=== PATIENT | male | born 1980 | race Caucasian/White ===

== ENCOUNTER 2016-09-15 09:47 | Emergency (ER) | payer OTHER ==
[2016-09-15 10:01] VITALS: BP 143/82; PULSE 61; RESP 14; TEMP 97.5; O2SAT 96
--- NOTE | 2016-09-15 10:05 | UCPHY ---
H & P Time Seen by Provider: 09/15/16 09:58 Patient Type: New HPI/ROS: HPI Left wrist and hand injury. 36-year-old male. Right-hand dominant. 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 He was playing softball last night. He fell on an outstretched left hand. He complains of isolated pain to the dorsal radial aspect of his mid hand as well as some pain to the ventral distal radial aspect of the left wrist. No other injury or complaint. ROS: Constitutional: No fever, no chills. No weakness. Musculoskeletal: No back pain. No neck pain. As above. No other extremity pain. Skin: No lacerations or abrasions. Neurological: No headache. No focal weakness or altered sensation. Past medical history: No significant past medical history. Social history: Nonsmoker. Here by himself. Physical Exam: General Appearance: Alert, no distress. This patient is responding to questions appropriately and in full sentences. This patient appears well- hydrated and well-nourished. Eyes: Pupils equal and round no pallor or injection. No lid edema, erythema or injection. Left hand and wrist exam: Significant for some tenderness on palpation and some faint ecchymosis with swelling over the mid dorsal metacarpals 2. And 3. He also has some mild pain on palpation without swelling or ecchymosis to the distal ventral radius. The left hand is neurovascularly intact. Extensor and flexor tendon function is intact in all digits. No lacerations or abrasions. Neurological: Motor sensory function is grossly intact. Cranial nerves are normal. Gait is normal. Skin: Warm and dry, no rashes. Musculoskeletal: Neck is supple and nontender. Extremities are symmetrical except noted. All joints range without pain or impingement except noted. Psychiatric: No agitation. No depression. Database: EKG: Imaging: Left hand and wrist series x-ray: Negative for fracture, subluxation, dislocation. Interpreted by me. Official read by radiologist pending. Procedures: Emergency department course: Vital signs reviewed. Patient sent for x-rays after my evaluation. He was given 600 mg of ibuprofen. 12:40 a.m., patient re-evaluated. Results of x-rays discussed. I explained that we would have a radiologist read these films and if there was any discrepancy in the read I would contact him. Plan for now will be splint placement in a thumb spica splint, ibuprofen for pain control and then follow up with Orthopedics. He is in agreement with this plan. He feels comfortable going home. All of his questions were answered. He was discharged from the emergency department in good condition. Differential Diagnosis: The differential diagnosis on this patient includes but is not limited to left hand wrist sprain versus fracture, subluxation, dislocation. This represents a partial list of diagnoses considered. These considerations are based on history , physical exam, past history, reassessment and diagnostic testing. Smoking Status: Never smoked Constitutional: Initial Vital Signs Temperature (C) 36.4 C 09/15/16 09:59 Heart Rate 61 09/15/16 09:59 Respiratory Rate 14 09/15/16 09:59 Blood Pressure 143/82 H 09/15/16 09:59 O2 Sat (%) 96 09/15/16 09:59 O2 Delivery Mode Room Air Allergies/Adverse Reactions: acetaminophen [From Darvocet-N] Allergy (Verified 09/15/16 10:00) propoxyphene napsylate [From Darvocet-N] Allergy (Verified 09/15/16 10:00) Home Medications: Medication Instructions Recorded NK [No Known Home Meds] 09/15/16 Departure - Departure Disposition: Home, Routine, Self-Care Clinical Impression: Injury of left hand, Left wrist injury Condition: Good Instructions: Hand Sprain (ED), Wrist Sprain (ED) Additional Instructions: Read and follow provided instructions. I have given you to different referral options for follow-up with Orthopedics. You should follow-up with Orthopedics within 2-3 days for re-evaluation. As discussed, you may require repeat x-rays of your left wrist to evaluate for a possible fracture that was not detected on the initial x-rays done in our emergency department. We will also call you if there is any discrepancy in the read of the x-rays by the radiologist. Ibuprofen dosin mg every 6 hours with meals for the next 3 days only. Take only as needed for pain Return to the emergency department for worsening pain, swelling, discoloration, loss of sensation or other serious concerns. Referrals: Valentina Alex MD [Medical Doctor] - As per Instructions Carlos Eduardo Villegas MD [Medical Doctor] - As per Instructions - PQRS PQRS Measurement: Not applicable.
== END 2016-09-15 10:53 | disposition home or self-care (01) ==
LOC: CED 09:47
DX: S69.92XA Unspecified injury of left wrist, hand and finger(s), initial encounter (principal); Y93.64 Activity, baseball; W18.30XA Fall on same level, unspecified, initial encounter; Y92.320 Baseball field as the place of occurrence of the external cause
CPT/HCPCS: 73110-PO; 73130-PO; G0463-PO; L3908